=== PATIENT | female | born 1975 | race Caucasian/White ===

== ENCOUNTER 2019-08-18 14:21 | Observation (INO) | payer OTHER, SELFPAY ==
--- NOTE | ~2019-08-18 | XR_ITS ---
XR chest 2V DATE: 08/18/2019 15:58 INDICATION: Shortness of breath, right-sided chest pain TECHNIQUE: AP and lateral views COMPARISON: 08/18/2019 CT abdomen pelvis 08/04/2017 two-view chest FINDINGS: There are mild bilateral pleural effusions and bibasilar atelectasis and/or infiltrate. Normal heart size. No hilar or mediastinal enlargement. IMPRESSION: Bibasilar infiltrate and/atelectasis and mild bilateral pleural effusions Reviewed, dictated and finalized at location A. IMPRESSION: Bibasilar infiltrate and/atelectasis and mild bilateral pleural eff usions
--- NOTE | ~2019-08-18 | CT_ITS ---
EXAMINATION: CT abdomen pelvis wo con DATE: 08/18/2019 15:43 INDICATION: Mid abdominal pain, low back pain TECHNIQUE: Computed tomography (CT) of the abdomen and pelvis was performed without intravenous contr ast. Automated exposure control and iterative reconstruction technique were employed. Exam dose: 139 7.75 mGy-cm total exam DLP. COMPARISON: 09/07/2017 CT abdomen pelvis FINDINGS: There are moderate bilateral pleural effusions. There is bilateral lower lung atelectasis, primarily compressive atelectasis in the lower lobes. Heart size is normal. There is trace pericardial fluid. There is prominent edema of the chest, abdominal and pelvic knox. There are stones in the gallbladder. The gallbladder is not distended. No bile duct or pancreatic tiffany t dilatation. No hepatic, splenic, pancreatic, and adrenal or renal space-occupying mass lesion is detected. No urinary tract calculus or hydroureteronephrosis is evident. There is atherosclerotic calcification of the abdominal aorta, prominent calcification at the origin of the superior mesenteric artery, calcification of the inferior mesenteric artery, renal and iliac a rteries. No intraperitoneal or retroperitoneal or pelvic mass lesion or adenopathy or ascites. Normal appendix. No bowel obstruction or intraperitoneal free air. Retroverted uterus; otherwise the uterus and adnexal areas are unremarkable. The urinary bladder is relatively evacuated. There is severe degenerative disc disease at L5-S1. IMPRESSION: Cholelithiasis Anasarca, moderate bilateral pleural effusions Atelectasis in the lower lungs Atherosclerosis Reviewed, dictated and finalized at Location [facility]. Reviewed, dictated and finalized at location A.
[2019-08-18 14:22] VITALS: BP 139/76; PULSE 79; RESP 20; TEMP 36.8; O2SAT 99
--- NOTE | 2019-08-18 14:40 | ED.GENADULT ---
HPI - General Adult General Chief complaint: Unspecified <ADRIANE Lopez - Last Filed: 08/18/19 18:58> Stated complaint: Bilateral Leg Swelling, Back Pain <ADRIANE Lopez - Last Filed: 08/18/19 18:58> Time Seen by Provider: 08/18/19 14:31 <ADRIANE Lopez - Last Filed: 08/18/19 18:58> Source: patient and family <ADRIANE Lopez - Last Filed: 08/18/19 18:58> Mode of arrival: ambulatory <ADRIANE Lopez - Last Filed: 08/18/19 18:58> Limitations: no limitations <ADRIANE Lopez - Last Filed: 08/18/19 18:58> History of Present Illness HPI narrative: 44-year-old female patient presents the emergency department with complaints of swelling to bilateral lower extremities and abdomen. Patient also complaining of abdominal pain. Patient does have history of kidney disease and diabetes. Patient states that she was hospitalized at [facility] about 2 weeks ago. Patient states that ever since she was discharged she really has not continued to decline. Patient states she does see a cigarette book maker but she has not followed up with them since being discharged. Patient states that her cigarette book maker did increase her Lasix while she was in the hospital however she states that she continues to retain fluid. Patient states that her sugars have also been high, typically over 200 during fasting. Patient states she has become more weak and has had a poor appetite. Patient states she has had a little bit of shortness of breath. Patient states that she was COVID tested twice while she was in hospital and came up negative both times. Patient states she has not had a bowel movement all week. Patient also states that she has had decrease in urine output and states she has only been urinating about twice a day. <ADRIANE Lopez - Last Filed: 08/18/19 18:58> Related Data Home medications: Home Medications Medication Instructions Recorded Confirmed alprazolam 0.5 mg PO TID PRN 08/18/19 amlodipine 10 mg PO DAILY 08/18/19 atorvastatin 40 mg PO DAILY 08/18/19 carvedilol 25 mg PO BID 08/18/19 clonidine HCl 0.2 mg PO Q6H PRN 08/18/19 doxazosin 2 mg PO DAILY 08/18/19 ergocalciferol (vitamin D2) 1,250 mcg PO 2XW 08/18/19 [Vitamin D2] furosemide 40 mg PO BID 08/18/19 gabapentin 100 mg PO HS 08/18/19 glimepiride 4 mg PO BID 08/18/19 hydralazine 50 mg PO TID 08/18/19 metoprolol tartrate 50 mg PO BID 08/18/19 pantoprazole 40 mg PO BID 08/18/19 sevelamer carbonate 800 mg PO TID 08/18/19 <ADRIANE Lopez - Last Filed: 08/18/19 18:58> Allergies/adverse reactions: Allergies Allergy/AdvReac Type Severity Reaction Status Date / Time ampicillin Allergy Severe Diarrhea Verified 08/18/19 14:39 <ADRIANE Lopez - Last Filed: 08/18/19 18:58> Review of Systems Review of Systems: Narrative: CONSTITUTIONAL: Denies fever, chills, or sweats. EYES: Denies visual changes, redness, or discharge. ENT: Denies rhinorrhea, congestion, sore throat, or otalgia. CARDIOVASCULAR: Denies chest pain, palpitations, positive edema to bilateral lower extremities that extend up to her lower abdomen. RESPIRATORY: Positive mild cough, positive dyspnea. GASTROINTESTINAL: Positive abdominal pain, nausea, denies vomiting, or diarrhea. Positive constipation GENITOURINARY: Denies dysuria or hematuria. Positive decrease in urine output SKIN: Denies rash or itching. MUSCULOSKELETAL: Denies back pain, joint pain, or myalgia. NEUROLOGIC: Denies headache, numbness, or weakness. PSYCHIATRIC: Denies anxiety or depression. <ADRIANE Lopez - Last Filed: 08/18/19 18:58> [facility] Social History Social History: Social History Smoking status: Never smoker Gender identity (if verbalized by the patient): Female <ADRIANE Lopez - Last Filed: 08/18/19 18:58> Exam Narrative: Exam Narrative: GENERAL: ill-appearing, and in no acute distress. HEAD: Normocephalic,
--- NOTE | 2019-08-18 15:00 | ECG_ITS ---
Measurements Intervals [place] Rate: 74 P: 21 MI: 197 QRS: -2 QRSD: 76 T: 95 QT: 418 QTc: 465 Interpretive Statements SINUS RHYTHM LOW QRS VOLTAGE IN LIMB LEADS CANNOT RULE OUT SEPTAL INFARCT, AGE INDETERMINATE BORDERLINE ST-T WAVE ABNORMALITY- INF/LAT LEADS ABNORMAL ECG Electronically Signed On 08-18-2019 20:44:08 CDT by Gil Haney D.O.
[2019-08-18] MEDS: ONDANSETRON INJ 4 MG/2 ML VIAL IV PUSH (15:18)
[2019-08-18 15:23] LABS: Glucose Point of Care 160 (65-105)
[2019-08-18 15:27] LABS: Basophils Absolute Auto 0.1 K/mm3 (0.0-0.1); Basophils Percent Auto 0.7 % (0.2-1.2); Eosinophils Absolute Auto 0.3 K/mm3 (0-0.3); Eosinophils Percent Auto 2.7 % (0-4.4); Hematocrit 28.1 % (37.0-47.0); Hemoglobin 9.1 g/dL (12.0-15.0); Immature Granulocyte Absolute 0.09 K/mm3 (0.00-0.031); Lymphocytes Absolute Auto 1.39 K/mm3 (0.9-3.2); Lymphocytes Percent Auto 14.9 % (18.3-44.2); Mean Corpuscular HGB Conc 32.4 g/dl (32-36); Mean Corpuscular Hemoglobin 31.4 pg (26-34); Mean Corpuscular Volume 96.9 fl (80-100); Mean Platelet Volume 11.7 fl (7.4-10.4); Monocytes Absolute Auto 0.9 K/mm3 (0.1-0.6); Monocytes Percent Auto 9.3 % (2.6-8.5); Neutrophils Absolute Auto 6.7 K/mm3 (1.3-6.7); Neutrophils Percent Auto 71.4 % (45.5-73.1); Platelet Count Result 159 k/mm3 (150-375); Red Cell Distribution Width 13.7 % (11.5-14.5); White Blood Count 9.4 K/mm3 (4.5-10.0)
[2019-08-18 15:34] LABS: INR 1.1; Prothrombin Time 13.9 Seconds (11.1-14.7)
[2019-08-18 15:35] LABS: Partial Thromboplastin Time 29.6 SECONDS (22.3-36.8)
[2019-08-18 15:37] LABS: Add Urine Microscopic? YES; Alanine Aminotransferase 13 U/L (4-35); Albumin Level 2.6 g/dL (3.5-5.1); Alkaline Phosphatase 57 U/L (38-126); Appearance Urine Cloudy (Clear); Aspartate Amino Transferase 15 U/L (14-36); Bacteria Urine Trace /hpf; Bilirubin Urine Negative (Negative); Bilirubin,Total < 0.1 mg/dL (0.2-1.3); Blood Urea Nitrogen 70 mg/dL (7-17); Blood Urine Negative (Negative); Calcium 6.7 mg/dL (8.4-10.2); Carbon Dioxide 16 mmol/L (22-30); Chloride 107 mmol/L (98-107); Color Urine Yellow (Yellow); Estimated CRCL calculation 13 ml/min; Estimated Glomerular Filt Rate 7; Glucose 177 mg/dL (65-105); Glucose Urine UA 1+ mg/dL (Negative); Ketones Urine Negative (Negative); Leukocyte Esterase Ur Trace LEU/UL (Negative); Lipase 147 U/L (23-300); Mucus Urine Rare /lpf; Nitrate Urine Negative (Negative); Potassium 4.8 mmol/L (3.4-5.0); Protein Urine 3+ mg/dL (Negative); RBC Urine 0-2 /hpf (0-2); Sodium 133 mmol/L (137-145); Specific Grav Ur 1.014 (1.001-1.035); Squamous Epithelial Cell Urine Many /hpf (Few); Urobilinogen Urine Negative mg/dL (<2.0); WBC Urine 31-50 /hpf
[2019-08-18 15:41] LABS: Beta-Hydroxybutyrate/Acetoacetate 0.07 mmol/L (0.02-0.27)
[2019-08-18 15:49] LABS: NT Pro B Type Natriuretic Pept 17000 PG/ML (5-100); Troponin I < 0.012 ng/mL (0.000-0.034)
[2019-08-18] MEDS: FUROSEMIDE INJ 40 MG/4 ML VIAL IV PUSH (17:40)
[2019-08-18 20:24] VITALS: BP 134/76; PULSE 73; RESP 17; O2SAT 97
--- NOTE | 2019-08-18 21:07 | PC.NURSE ---
No bed at [facility]
[2019-08-18 21:56] VITALS: BP 129/70; PULSE 70; O2SAT 98
[2019-08-18 22:58] VITALS: BP 134/76; PULSE 72; RESP 19; O2SAT 98
--- NOTE | 2019-08-18 22:58 | PC.NURSE ---
Patient moved to room 10. Report will be given to assistant casino shift manager RN
[2019-08-19 00:17] VITALS: BP 128/73; PULSE 73; RESP 20; O2SAT 94
[2019-08-19 04:27] VITALS: BP 141/84; PULSE 69; RESP 20; O2SAT 94
[2019-08-19 05:47] VITALS: BP 135/73; PULSE 70; RESP 20; O2SAT 95
[2019-08-19 05:54] VITALS: BP 135/73; PULSE 70; RESP 20; O2SAT 95
[2019-08-19 06:50] VITALS: BP 123/67; PULSE 70; RESP 20; TEMP 36.3; O2SAT 97; BMI 35.4
--- NOTE | 2019-08-19 06:51 | ADMGEN ---
This patient, Pauline Hercules, was admitted to [facility] Surg Room 330-01. Patient/family oriented to hospital policies and general routines including ID bracelet, bed and alarms, visiting hours, pain management, procedures, bathroom and other care routines, personal items, smoking policy, room service/diet, and visiting hours. Valuables list has been completed. Information on how to activate the Rapid Response Team has been discussed. Patient/Family are encouraged to report perceived risks to care and to ask questions if they do not understand what they are told or what they should do.
[2019-08-19] MEDS: FUROSEMIDE INJ 40 MG/4 ML VIAL IV PUSH (08:05)
--- NOTE | 2019-08-19 10:07 | PC.NURSE ---
Patient transferred to [facility] via [facility]. Patient left with 20g Right wrist and mejia cath.
--- NOTE | 2019-08-19 10:24 | PM.TDS ---
Transfer Discharge Sum: Prov Provider Date of admission: 08/19/19 05:33 Primary care physician: Michael Stewart MD Admitting clinician: Rodney Marcial MD Transfer Discharge Sum: Med Medications Active and Home Medications: Home Medications alprazolam 0.5 mg PO TID PRN 08/18/19 [History] amlodipine 10 mg PO DAILY 08/18/19 [History] atorvastatin 40 mg PO DAILY 08/18/19 [History] carvedilol 25 mg PO BID 08/18/19 [History] clonidine HCl 0.2 mg PO Q6H PRN 08/18/19 [History] doxazosin 2 mg PO DAILY 08/18/19 [History] ergocalciferol (vitamin D2) [Vitamin D2] 1,250 mcg PO 2XW 08/18/19 [History] furosemide 40 mg PO BID 08/18/19 [History] gabapentin 100 mg PO HS 08/18/19 [History] glimepiride 4 mg PO BID 08/18/19 [History] hydralazine 50 mg PO TID 08/18/19 [History] metoprolol tartrate 50 mg PO BID 08/18/19 [History] pantoprazole 40 mg PO BID 08/18/19 [History] sevelamer carbonate 800 mg PO TID 08/18/19 [History] Active Medications Furosemide (Lasix Inj) 40 mg IV PUSH BID BENJI Last Admin: 08/19/19 08:05 Dose: 40 mg Documented by: Transfer Discharge Sum: Hosp Hospital Course Hospital course: Pauline Hercules is a 44 year old female with type 2 diabetes mellitus, hypertension, and stage 5 chronic renal failure. She presented to the emergency room in the afternoon of the with complaints of pedal edema and abdominal swelling.. She was satting 97% on room air but had bilateral pleural effusions and creatinine greater than 6 with potassium 4.8. Her vacuum closing machine operator Dr. Leyva was, consulted from the ER and requested that the patient be transferred to [facility]. Patient agreed and she was accepted in transfer. When transfer took longer than expected she is admitted in observation to medical floor here at approximately 7:00 a.m. 08/18. When I went to see the patient ambulance attendees were placing her on a gurney in preparation for transport to [facility]. No formal history and physical with able to be done. Last set of vitals before discharge was 124/66 pulse 70 saturating 97% on room air and afebrile Time Spent with Patient Time attestation: Total time spent providing and/or coordinating transfer services: DS: Data Data Completed and Pending Labs on day of discharge: Labs from last 24 hours 08/18/19 08/18/19 08/18/19 16:37 15:18 15:17 WBC RBC Hgb Hct MCV MCH MCHC RDW Plt Count MPV Immature Gran % (Auto) Neut % (Auto) Lymph % (Auto) [place] % (Auto) Eos % (Auto) Baso % (Auto) Lymph # (Auto) [place] # (Auto) Eos # (Auto) Baso # (Auto) Abs Immat Gran (auto) Absolute Neuts (auto) Absolute Nucleated RBC Nucleated RBC % PT INR APTT Sodium Potassium Chloride Carbon Dioxide BUN Creatinine Estim Creat Clear Calc Estimated GFR Glucose POC Capillary Glucose 160 H Calcium Total Bilirubin AST ALT Alkaline Phosphatase Troponin I NT-Pro-B Natriuret Pep Total Protein Albumin Lipase Beta-Hydroxybutyrate/Acetoacetate Urine Color Yellow Urine Appearance Cloudy H Urine pH 6.0 Ur Specific [place] 1.014 Urine Protein 3+ H Urine Glucose (UA) 1+ H Urine Ketones Negative Ur Blood (Man) Negative Urine Nitrate Negative Urine Bilirubin Negative Urine Urobilinogen Negative Leukocyte Esterase Rfl Trace H Urine RBC 0-2 Urine WBC 31-50 H Ur Squamous Epith Cells Many H Urine Bacteria Trace Urine Mucus Rare SARS-CoV-2 RNA (RT-PCR) Pending 08/18/19 08/18/19 08/18/19 15:17 15:17 15:17 WBC RBC Hgb Hct MCV MCH MCHC RDW Plt Count MPV Immature Gran % (Auto) Neut % (Auto) Lymph % (Auto) [place] % (Auto) Eos % (Auto) Baso % (Auto) Lymph # (Auto) [place] # (Auto) Eos # (Auto) Baso # (Auto) Abs Immat Gran (auto) Absolute Neuts (auto) A
[2019-08-19 20:02] LABS: SARS-CoV-2 RNA PCR Negative
== END 2019-08-19 10:10 | disposition short-term general hospital (02) ==
LOC: ANHED 18:38 → ANH3MEDSUR 08-21 10:36
PROVIDERS: Admitting Provider Family Medicine; Emergency Provider Nurse Practitioner Family; PCP Family Medicine Adolescent Medicine; Visit Provider Internal Medicine
DX: N17.9 Acute kidney failure, unspecified (principal); R06.02 Shortness of breath; M79.89 Other specified soft tissue disorders; I12.0 Hypertensive chronic kidney disease with stage 5 chronic kidney disease or end stage renal disease; E11.22 Type 2 diabetes mellitus with diabetic chronic kidney disease; N18.5 Chronic kidney disease, stage 5; Z79.899 Other long term (current) drug therapy
CPT/HCPCS: 36415; 71046; 74176; 80053; 81001; 81025; 82010; 82948; 83690; 83880; 84484; 85025; 85610; 85730; 87086; 87088; 87635; 93005; 96374; 99285; C9803; G0378; G0379; J0131; J1940; J2405; U0003

== ENCOUNTER 2019-09-30 10:59 | Outpatient (CLI) | payer OTHER, SELFPAY ==
[2019-09-30 11:38] LABS: Hemoglobin A1C 4.7 % (<5.7)
[2019-09-30 11:39] LABS: Alanine Aminotransferase 16 U/L (4-35); Albumin Level 3.3 g/dL (3.5-5.1); Alkaline Phosphatase 72 U/L (38-126); Anion Gap 8 mmol/L (8-16); Aspartate Amino Transferase 21 U/L (14-36); Bilirubin,Total 0.2 mg/dL (0.2-1.3); Blood Urea Nitrogen 39 mg/dL (7-17); Calcium 9.3 mg/dL (8.4-10.2); Carbon Dioxide 24 mmol/L (22-30); Chloride 103 mmol/L (98-107); Estimated Glomerular Filt Rate 13; Glucose 207 mg/dL (65-105); Potassium 5.1 mmol/L (3.4-5.0); Sodium 135 mmol/L (137-145)
[2019-09-30 12:00] LABS: Creatinine Urine 38.8 mg/dL
[2019-09-30 12:55] LABS: Microalbumin Urine Random > 1140.0 mg/L (0-16.7)
== END 2019-09-30 11:00 | disposition home or self-care (01) ==
PROVIDERS: PCP Family Medicine Adolescent Medicine; Visit Provider Internal Medicine Endocrinology, Diabetes & Metabolism
DX: E11.42 Type 2 diabetes mellitus with diabetic polyneuropathy (principal)
CPT/HCPCS: 36415; 80053; 82043; 83036

== ENCOUNTER 2020-09-10 14:43 | Outpatient (CLI) | payer MEDICARE, MEDICAID, SELFPAY ==
--- NOTE | ~2020-09-10 | MM_ITS ---
EXAMINATION: MM screening zaira BI w beny HISTORY: Screening mammogram TECHNIQUE: Craniocaudal and mediolateral oblique 3-D tomosynthesis images were obtained and synthetic 2-D images were generated. CAD analysis was submitted and interpreted. COMPARISON: No prior mammogram is available for comparison at this institution. BREAST PARENCHYMAL COMPOSITION: There are scattered areas of fibroglandular density. FINDINGS: There is no evidence of suspicious mass, calcification, or architectural distortion to sugg est malignancy in either breast. There has been no suspicious interval change. IMPRESSION: 1. No mammographic evidence of malignancy. 2. Recommend routine screening mammography in one year. BI-RADS Category 1: Negative Reviewed, dictated and finalized at location A.
== END 2020-09-10 14:44 | disposition home or self-care (01) ==
LOC: ANHIMG 14:47
PROVIDERS: PCP Family Medicine Adolescent Medicine; Visit Provider Family Medicine Adolescent Medicine
DX: Z12.31 Encounter for screening mammogram for malignant neoplasm of breast (principal)
CPT/HCPCS: 77063; 77067

== ENCOUNTER 2024-07-19 10:00 | Outpatient (CLI) | payer MEDICARE, MEDICAID, SELFPAY ==
--- NOTE | ~2024-07-19 | XR_ITS ---
XR ankle LT min 3V 07/19/2024 10:22 Indication: Left ankle pain Procedure: 4 views left ankle Comparison: No prior studies for comparison. Findings: There is anatomic alignment. No fracture, subluxation or dislocation. There is atherosclero sis. No erosive changes. No focal soft tissue abnormality. Impression: 1: No significant bone or joint abnormality. Reviewed, dictated and finalized at location A. Impression: 1: No significant bone or joint abnormality.
== END 2024-07-19 10:01 | disposition home or self-care (01) ==
LOC: MICIMG 10:05
PROVIDERS: PCP Family Medicine Adolescent Medicine; Visit Provider Family Medicine Adolescent Medicine
DX: M25.571 Pain in right ankle and joints of right foot (principal); M25.572 Pain in left ankle and joints of left foot
CPT/HCPCS: 73610

== ENCOUNTER → 2024-09-25 09:04 | Outpatient (CLI) | payer MEDICARE, MEDICAID, SELFPAY ==
--- NOTE | ~2024-09-25 | XR_ITS ---
XR knee RT min 4V 09/25/2024 09:39 Indication: Right knee pain Procedure: 4 views right knee Comparison: No prior studies for comparison. Findings: There is mild tricompartment osteoarthritis of the right knee. No fracture, subluxation or dislocation. There is atherosclerosis. No significant joint effusion. Impression: 1: Mild tricompartment osteoarthritis. Reviewed, dictated and finalized at location A. Impression: 1: Mild tricompartment osteoarthritis.
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
== END ==
PROVIDERS: PCP Family Medicine; Visit Provider Family Medicine
DX: R10.2 Pelvic and perineal pain (principal); M79.671 Pain in right foot; M25.571 Pain in right ankle and joints of right foot; M17.11 Unilateral primary osteoarthritis, right knee; S82.54XA Nondisplaced fracture of medial malleolus of right tibia, initial encounter for closed fracture; X58.XXXA Exposure to other specified factors, initial encounter; M25.471 Effusion, right ankle; M25.461 Effusion, right knee; M16.0 Bilateral primary osteoarthritis of hip
CPT/HCPCS: 72170; 73564; 73610; 73630